=== PATIENT | female | born 1985 | race Caucasian/White ===

== ENCOUNTER 2018-01-01 22:38 | Emergency (ER) | payer OTHER, MEDICAID, SELFPAY ==
[2018-01-01 22:45] VITALS: BP 114/79; PULSE 93; RESP 14; TEMP 36.5; O2SAT 100; BMI 16.6
--- NOTE | 2018-01-01 22:47 | ED_ITS ---
HPI - Dental/Oral General Chief complaint: Dental/Oral Stated complaint: SORE MOUTH Time Seen by Provider: 01/01/18 22:47 Source: patient Mode of arrival: ambulatory Limitations: no limitations History of Present Illness HPI Narrative: The patient tells me she has experienced dental pain for years. She has significant decay. She has increased right maxillary pain today. There is no associated fever, facial swelling, difficulty swallowing, or chest pain. She has had no recent dental injury. She is currently in a Suboxone clinic for opioid abuse. She is going to inpatient rehab next week. Related Data Home Medications Medication Instructions Recorded Confirmed acyclovir [Zovirax] 800 mg PO BID #0 11/10/12 ibuprofen 200 mg PO Q4HP PRN #0 tab 11/10/12 Previous Rx's Medication Instructions Recorded amoxicillin 500 mg PO TID #27 cap 01/01/18 fluconazole [Diflucan] 150 mg PO QWEEK 14 Days #2 tab 01/01/18 ibuprofen 600 mg PO Q6-8H PRN #30 tab 01/01/18 Allergies Allergy/AdvReac Type Severity Reaction Status Date / Time No Known Drug Allergies Allergy Verified 01/01/18 22:45 Review of Systems Review of Systems All systems reviewed & are unremarkable except as noted in HPI and below Constitutional Denies chills, Denies fever(s), Denies headache(s), Denies lethargy and Denies weakness ENT Ears, Nose, Mouth, and Throat: Denies change in voice, Reports dental pain, Denies dizziness, Denies headache(s), Denies neck pain, Denies sinus pain and Denies sore throat Cardiovascular Denies chest pain and Denies palpitations Musculoskeletal Denies neck pain Integumentary/Breasts Denies pruritus and Denies rash Neurologic Denies dizziness, Denies headache(s) and Denies weakness Endocrine Denies palpitations PFSH Medical History No significant past surgical history (Acute) Opioid abuse (Acute) Social History Smoking Status: Current every day smoker additional social history: She is on Suboxone due to a history of opioid abuse. Exam Initial Vital Signs Initial Vital Signs: Vital Signs Temperature 97.7 F 01/01/18 22:45 Pulse Rate 93 H 01/01/18 22:45 Respiratory Rate 14 01/01/18 22:45 Blood Pressure 114/79 01/01/18 22:45 Pulse Oximetry 100 01/01/18 22:45 Const General: cooperative and well developed Nutritional Appearance: well nourished Orientation: alert, awake, oriented x3 and not confused [facility] [place] Head: normocephalic, atraumatic and other (No facial swelling.) Face and sinus: sinuses nontender, face symmetric and No dry mucous membranes Mouth: oral mucosae normal and moist mucous membranes Teeth and gingiva: other (Extensive dental decay. Tooth #4 has decayed to the gumline, other than little spike. There is tenderness with erythema and fluctuance at the base of this tooth. She has a small abscess.) Throat: posterior oropharynx normal, tonsils normal and uvula midline Neck Neck: full ROM and No lymphadenopathy Cardio Rate: regular rate Rhythm: regular rhythm Heart Sounds: S1 normal, S2 normal and no murmurs Course Orders Ordered: Discontinued Medications Amoxicillin ( Trimox 250mg Prepack) 1 bottle MISC SEEINSTR ONE Stop: 01/01/18 23:14 Last Admin: 01/01/18 23:19 Dose: 1 bottle Ketorolac Tromethamine (Toradol) 60 mg IM NOW ONE Stop: 01/01/18 23:14 Last Admin: 01/01/18 23:19 Dose: 60 mg Vital Signs - 8 hr 01/01/18 22:45 Temperature 97.7 F Pulse Rate 93 H Respiratory Rate 14 Blood Pressure 114/79 Pulse Oximetry 100 [facility] - Dental/Oral Medical Records Attestation: I reviewed the patient's medical records. [facility] Narrative Medical decision making narrative: She has been started on IM oxacillin for a small dental abscess. She is advised to use ibuprofen for pain. She is advised to seek dental follow-up. Discharge Plan Departure Patient Disposition: Home Clinical Impression: Dental abscess Instructions: Tooth Abscess Activity Restrictions/Additional Instructions: Amoxicillin 500 mg 3 times daily. Motrin 600 mg every 6 hr as needed for pain. Be sure you are drinking plenty of water. Diflucan as needed for vaginitis associated with the antibiotics. Return here if worse, I recommend arranging dental follow-up as soon as possible. Prescriptions: New amoxicillin 500 mg capsule 500 mg PO TID Qty: 27 RF: 0 ibuprofen 600 mg tablet 600 mg PO Q6-8H PRN (Reason: pain) Qty: 30 RF: 0 fluconazole [Diflucan] 150 mg tablet 150 mg PO QWEEK 14 Days Qty: 2 RF: 0 No Action acyclovir [Zovirax] 800 MG tablet 800 mg PO BID Qty: 0 RF: 0 ibuprofen 200 MG tablet 200 mg PO Q4HP PRNQty: 0 RF: 0
--- NOTE | 2018-01-01 23:09 | PC.NURSE ---
Dr. Rios at bedside to assess pt.
[2018-01-01] MEDS: KETOROLAC 60 MG/2 ML VIAL IM (23:19)
[2018-01-01] MEDS: AMOXICILLIN 250 MG PREPACK 1 BOTTLE MISC (23:19)
[2018-01-01 23:42] VITALS: BP 114/83; PULSE 80; RESP 16; TEMP 36.5; O2SAT 99
== END 2018-01-01 23:46 | disposition home or self-care (01) ==
LOC: ED 23:31
PROVIDERS: Emergency Provider Emergency Medicine
DX: K04.7 Periapical abscess without sinus (principal)
CPT/HCPCS: 96372; 99282; 99283; J1885

== ENCOUNTER 2018-01-29 18:56 | Inpatient (IN) | payer OTHER, MEDICAID, SELFPAY ==
[2018-01-29] VITALS (7 sets, daily range): BP systolic 96–123; BP diastolic 49–84; PULSE 107–131; RESP 16–18; TEMP 37.4–38.6; O2SAT 98–100; BMI 16.6; BMI 17.2
[2018-01-29 19:28] LABS: Bacteria Urine Many (>30); RBC Urine 5-10/HPF (0-5/HPF); Squamous Epithelial Cell Urine 0-1 /HPF; WBC Urine 30-100/HPF (0-5/HPF)
[2018-01-29 19:29] LABS: Culture Indicated Urine Specimen Cultured
[2018-01-29] MEDS: SODIUM CHLORIDE 0.9% 1,360.77 ML 400 ML IV (19:55)
[2018-01-29] MEDS: CEFTRIAXONE 1 GM/50 ML FROZ.PIGGY IV (19:55)
[2018-01-29 20:06] LABS: Add Manual Diff / Slide Review NO; Basophils Percent Auto 0.2 % (0-2); Eosinophils Percent Auto 0.2 % (2-4); Hematocrit 37.7 % (36-46); Hemoglobin 13.1 g/dL (12.0-16.0); Lymphocytes Percent Auto 5.4 % (25-40); Mean Corpuscular HGB Conc 34.7 % (30-36); Mean Corpuscular Hemoglobin 30.6 PG (26-34); Mean Corpuscular Volume 88.1 fL (80-100); Neutrophils Absolute Auto 5900 /uL (3000-5900); Neutrophils Percent Auto 87.2 % (50-75); Platelet Count 79 X10^3/uL (150-400); Red Blood Cell Count 4.27 X10^6/uL (4.0-5.2); Red Cell Distribution Width 13.2 % (11.6-14.8); White Blood Cell Count 6.8 X10^3/uL (4.5-11.0)
[2018-01-29 20:09] LABS: Alanine Aminotransferase 175 IU/L (9-52); Albumin 4.1 g/dL (3.5-5.0); Albumin Globulin Ratio 1.3 (1.0-2.8); Alkaline Phosphatase 106 U/L (38-126); Aspartate Aminotransferase 90 IU/L (14-36); Bilirubin Total 1.1 mg/dL (0.2-1.3); Blood Urea Nitrogen 12 mg/dL (7-17); Calcium 8.9 mg/dL (8.4-10.2); Carbon Dioxide 26 mmol/L (22-32); Chloride 94 mmol/L (98-107); Estimated Glomerular Filt Rate > 60.0 mL/min (>60); Globulin 3.2 g/dL (1.7-4.1); Glucose 162 mg/dL (70-100); HEMOLYSIS < 15 (0-50); Potassium 3.5 mmol/L (3.4-5.1); Sodium 134 mmol/L (137-145); Total Protein 7.3 g/dL (6.3-8.2)
[2018-01-29 20:10] LABS: Lactate (Lactic Acid) 2.5 mmol/L (0.7-2.1)
[2018-01-29] MEDS: ACETAMINOPHEN 325 MG TABLET 650 MG PO (20:20)
[2018-01-29 20:31] LABS: Procalcitonin 2.79 ng/mL (<0.5)
[2018-01-29] MEDS: SODIUM CHLORIDE 0.9% 1,000 ML 1000 ML IV (20:49)
--- NOTE | 2018-01-29 21:12 | ED.FEMALEGU ---
HPI - Female Genitourinary General Chief complaint: Urogenital-Female Stated complaint: SHAKING, BACK PAIN Time Seen by Provider: 01/29/18 19:10 Source: patient and family Mode of arrival: ambulatory Limitations: no limitations History of Present Illness HPI Narrative: 32-year-old female with history of smoking methamphetamines presents with her mother and a chief complaint of a day or 2 of dysuria, frequency and urgency as well as left lower back pain, fever and shaking chills. She has had nausea but denies any vomiting. She denies any chest pain or shortness of breath. She denies runny nose, sore throat. She has had no abdominal pain or diarrhea. She states her back pain is worse with motion and improves with rest. She denies any numbness, tingling or weakness. She denies any loss of control of bowel or bladder. MD Complaint: dysuria and UTI Onset (ago): day(s) Female Urogenital Radiation: L Flank Severity: moderate Quality: Aching, Burning and Cramping Duration: constant Exacerbating factors: movement Urinary symptoms: Difficulty Urinating, Dysuria, Flank Pain, Foul Smelling Urine, Frequency and Urgency Patient : No Related Data Home Medications Medication Instructions Recorded Confirmed acyclovir [Zovirax] 800 mg PO BID PRN #0 11/10/12 01/29/18 ibuprofen 200 mg PO Q4HP PRN #0 tab 11/10/12 01/29/18 valacyclovir 500 mg PO BID 01/29/18 01/29/18 Previous Rx's Medication Instructions Recorded ibuprofen 600 mg PO Q6-8H PRN #30 tab 01/01/18 Allergies Allergy/AdvReac Type Severity Reaction Status Date / Time No Known Drug Allergies Allergy Verified 01/29/18 19:17 Review of Systems Review of Systems All systems reviewed & are unremarkable except as noted in HPI and below Constitutional Reports chills, Reports fever(s), Denies lethargy and Denies weakness Eyes Denies change in vision, Denies eye discharge, Denies irritation and Denies loss of vision ENT Ears, Nose, Mouth, and Throat: Denies change in voice, Denies neck pain and Denies sore throat Cardiovascular Denies chest pain, Denies irregular heart rhythm, Denies lightheadedness, Denies palpitations, Denies dyspnea, Denies dyspnea on exertion and Denies orthopnea Respiratory Denies cough, Denies dyspnea, Denies dyspnea on exertion and Denies wheezing Gastrointestinal Gastrointestinal: Denies abdominal pain, Denies change in bowel habits, Denies diarrhea, Denies nausea and Denies vomiting Genitourinary Denies hematuria, Reports urinary frequency, Reports dysuria, Reports flank pain, Denies urinary incontinence and Denies urinary urgency Musculoskeletal Reports back pain and Denies neck pain Integumentary/Breasts Denies pruritus, Denies erythema, Denies rash and Denies wounds Neurologic Denies confusion, Denies loss of vision and Denies weakness Psychiatric Denies anxiety, Denies confusion, Denies depression, Denies homicidal ideation and Denies suicidal ideation Endocrine Denies palpitations Hematologic/Lymphatic Denies easy bruising Allergic/Immunologic Denies wheezing PFSH Medical History Asthma (Acute) Dental abscess (Acute) 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 Exam Narrative Exam Narrative: 32-year-old female obviously in distress, tearful clutching her left flank, mild rigors Initial Vital Signs Initial Vital Signs: Vital Signs Temperature 99.4 F 01/29/18 19:17 Pulse Rate 131 H 01/29/18 19:17 Respiratory Rate 16 01/29/18 19:17 Blood Pressure 123/84 01/29/18 19:17 Pulse Oximetry 100 01/29/18 19:17 Const General: cooperative, well developed, No well groomed, acute distress, disheveled, frail appearing and ill appearing Nutritional Appearance: malnourished Orientation: alert, awake, oriented x3 and not confused [facility] Head: normocephalic and atraumatic Ears: external ears normal and TM's normal bilaterally Nose: external nose normal Face and sinus: no sinus tenderness and No dry mucous membranes Mouth: oral mucosae normal and moist mucous membranes Teeth and gingiva: poor dentition Throat: tonsils normal and uvula midline Eyes General: appearance normal, both eyes and all related structures Eyelids: eyelids normal Conjunctivae: conjunctivae normal Sclera: sclerae normal Pupils: PERRL EOM: EOM intact bilaterally Neck Neck: normal visual inspection, trachea midline, No lymphadenopathy, No midline deformity and No JVD Lymphatic: No lymphedema Chest Chest: normal inspection of the chest Resp Effort & Inspection: normal respiratory effort, able to speak in complete sentences, no respiratory distress and no use of accessory muscles Auscultation: clear to auscultation bilaterally, no rales, no rhonchi and no wheezes Cardio Rate: tachycardic Rhythm: regular rhythm GI Inspection: non-distended Palpation: soft, no hepatosplenomegaly, No guarding, No pulsatile mass and No tender Auscultation: normal bowel sounds Back/Spine/Pelvis Back: CVA tenderness Cervical Spine: cervical ROM normal and No pain with cervical ROM Thoracic/Lumbar Spine: thoracic and lumbar spine normal to inspection Skin General: no rashes or lesions noted, No jaundice and No petechiae Neuro Cognition: normal cognition Speech: speech normal Gait: normal gait Motor: muscle tone normal throughout Sensory Exam: no sensory deficits noted DTR's: Rt Patellar: 2+ and Lt Patellar: 2+ Other: no saddle anesthesia Extrem General: full ROM, no clubbing, cyanosis or edema, no pedal edema and no calf tenderness Course Orders Ordered: ED Orders 01/29/18 19:01 Urine Culture Stat Urine Microscopic Stat 01/29/18 19:35 Blood Culture Stat Complete Blood Count AUTO DIFF Stat Comprehensive Metabolic Panel Stat Lactate (Lactic Acid) Stat Procalcitonin Stat 01/29/18 21:40 Education, smoking cessation ONGOING 01/29/18 22:01 Consult to Dietitian, Adult Routine 01/29/18 23:17 Consult to Respiratory Therapy Evaluate & Treat Consult to Shrink Pit Supervisor Routine 01/29/18 23:56 Lactate 4HR (Lactic Acid Rflx) Stat 01/30/18 05:00 Basic Metabolic Panel Routine Complete Blood Count AUTO DIFF Routine Acetaminophen (Tylenol) 650 mg PO Q6HR PRN PRN Reason: As Needed for Fever/Mild Pain Hydrocodone Bitart/Acetaminophen ([place] 5/325) 1 tab PO Q4HR PRN PRN Reason: Pain, Moderate (4-6) Docusate Sodium (Colace) 100 mg PO BID [facility] Ceftriaxone Sodium/Dextrose (Rocephin) 1 gm in 50 mls @ 100 mls/hr IV Q24H [facility] Last Admin: 01/29/18 22:58 Dose: Dextrose/Sodium Chloride (Dextrose 5%-0.45% Ns) 1,000 mls @ 100 mls/hr IV CONT [facility] Last Admin: 01/29/18 23:02 Dose: 100 mls/hr Magnesium Hydroxide (Milk Of Magnesia) 30 ml PO DAILY PRN PRN Reason: Constipation Morphine Sulfate (Morphine) 2 mg IV Q4HR PRN PRN Reason: Pain, Moderate (4-6) Last Admin: 01/30/18 00:04 Dose: 2 mg Ondansetron HCl (Zofran Odt) 4 mg PO Q8HR PRN PRN Reason: Nausea And Vomiting Ondansetron HCl (Zofran) 4 mg IV Q8HR PRN PRN Reason: Nausea And Vomiting Promethazine HCl (Phenadoz) 12.5 mg VT Q6HR PRN PRN Reason: Nausea And Vomiting Sennosides (Senna) 17.2 mg PO BEDTIME [facility] Discontinued Medications Acetaminophen (Tylenol) 650 mg PO NOW ONE Stop: 01/29/18 20:00 Last Admin: 01/29/18 20:20 Dose: 650 mg Acyclovir (Zovirax) 800 mg PO BID [facility] Fluconazole (Diflucan) 150 mg PO NOW ONE Stop: 01/29/18 22:02 Last Admin: 01/30/18 00:05 Dose: 150 mg Ceftriaxone Sodium/Dextrose (Rocephin) 1 gm in 50 mls @ 100 mls/hr IV NOW ONE Stop: 01/29/18 19:50 Last Infusion: 01/29/18 20:38 Dose: 0 mls/hr Admin: 01/29/18 19:55 Dose: 100 mls/hr Sodium Chloride (Normal Saline 0.9%) 1,360.77 mls @ 453.59 mls/hr 30 ml/kg infuse over 3 hr (1360.77 ml) IV CONT [facility] Last Infusion: 01/29/18 23:58 Dose: 0 mls/hr Infusion: 01/29/18 22:19 Dose: 453.59 mls/hr Infusion: 01/29/18 21:14 Dose: 453.59 mls/hr Infusion: 01/29/18 20:44 Dose: 0 mls/hr Admin: 01/29/18 19:55 Dose: 400 mls/hr Sodium Chloride (Normal Saline 0.9%) 1,000 mls @ 1,000 mls/hr IV BOLUS ONE Stop: 01/29/18 20:58 Last Infusion: 01/29/18 21:10 Dose: 0 mls/hr Admin: 01/29/18 20:49 Dose: 1,000 mls/hr Ibuprofen (Advil) 800 mg PO NOW ONE Stop: 01/29/18 22:15 Last Admin: 01/29/18 22:15 Dose: 800 mg Reevaluation(s) Reevaluation #1: patient continues to be tachycardic after 1st liter Consultations Consultation #1: Dr. Gibson happy to admit patient, will evaluate in ED Vital Signs - 8 hr 01/29/18 19:17 01/29/18 20:00 01/29/18 21:10 Temperature 99.4 F Pulse Rate 131 H 122 H 117 H Respiratory Rate 16 18 18 Blood Pressure 123/84 Blood Pressure [Left Arm] 117/82 102/69 Pulse Oximetry 100 100 100 01/29/18 22:08 01/29/18 22:15 01/29/18 22:41 Temperature 101.4 F H 101.4 F H 100.6 F H Pulse Rate 112 H 107 H Respiratory Rate 18 Blood Pressure 96/49 L Blood Pressure [Left Arm] Pulse Oximetry 100 98 01/29/18 22:49 01/30/18 00:00 01/30/18 00:30 Temperature 98.6 F Pulse Rate Respiratory Rate Blood Pressure Blood Pressure [Left Arm] Pulse Oximetry 98 94 MDM - Female Genitourinary Differential Diagnosis Likely urinary tract infection Medical Records Attestation: I reviewed the patient's medical records. Lab Data Attestation: I reviewed the patient's lab results. Result diagrams: 01/29/18 19:35 01/29/18 19:35 Lab Results 01/29/18 01/29/18 01/29/18 Range/Units 19:01 19:35 19:35 WBC 6.8 (4.5-11.0) X10^3/uL RBC 4.27 (4.0-5.2) X10^6/uL Hgb 13.1 (12.0-16.0) g/dL Hct 37.7 (36-46) % MCV 88.1 (80-100) fL MCH 30.6 (26-34) PG MCHC 34.7 (30-36) % RDW 13.2 (11.6-14.8) % Plt Count 79 L (150-400) X10^3/uL Neut % (Auto) 87.2 H (50-75) % Lymph % (Auto) 5.4 L (25-40) % [place] % (Auto) 7.0 (3-14) % Eos % (Auto) 0.2 L (2-4) % Baso % (Auto) 0.2 (0-2) % Neut # (Auto) 5900 (3385-2174) /uL Sodium (137-145) mmol/L Potassium (3.4-5.1) mmol/L Chloride (98-107) mmol/L Carbon Dioxide (22-32) mmol/L BUN (7-17) mg/dL Creatinine (0.52-1.04) mg/dL Estimated GFR (>60) mL/min BUN/Creatinine Ratio (6-22) Glucose (70-100) mg/dL Lactate (0.7-2.1) mmol/L Calcium (8.4-10.2) mg/dL Total Bilirubin (0.2-1.3) mg/dL AST (14-36) IU/L ALT (9-52) IU/L Alkaline Phosphatase (38-126) U/L Total Protein (6.3-8.2) g/dL Albumin (3.5-5.0) g/dL Globulin (1.7-4.1) g/dL Albumin/Globulin Ratio (1.0-2.8) Procalcitonin 2.79 H (<0.5) ng/mL Urine RBC 5-10/hpf H (0-5/HPF) Urine WBC 30-100/hpf H (0-5/HPF) Ur Squamous Epith Cells 0-1 /hpf Urine Bacteria Many (>30) H (None) Ur Culture Indicated? Specimen cultured Micro UA Comment Not Reportable 01/29/18 01/29/18 01/30/18 Range/Units 19:35 19:35 00:09 WBC (4.5-11.0) X10^3/uL RBC (4.0-5.2) X10^6/uL Hgb (12.0-16.0) g/dL Hct (36-46) % MCV (80-100) fL MCH (26-34) PG MCHC (30-36) % RDW (11.6-14.8) % Plt Count (150-400) X10^3/uL Neut % (Auto) (50-75) % Lymph % (Auto) (25-40) % [place] % (Auto) (3-14) % Eos % (Auto) (2-4) % Baso % (Auto) (0-2) % Neut # (Auto) (6462-5545) /uL Sodium 134 L (137-145) mmol/L Potassium 3.5 (3.4-5.1) mmol/L Chloride 94 L (98-107) mmol/L Carbon Dioxide 26 (22-32) mmol/L BUN 12 (7-17) mg/dL Creatinine 1.00 (0.52-1.04) mg/dL Estimated GFR > 60.0 (>60) mL/min BUN/Creatinine Ratio 12.0 (6-22) Glucose 162 H (70-100) mg/dL Lactate 2.5 H 2.3 H (0.7-2.1) mmol/L Calcium 8.9 (8.4-10.2) mg/dL Total Bilirubin 1.1 (0.2-1.3) mg/dL AST 90 H (14-36) IU/L ALT 175 H (9-52) IU/L Alkaline Phosphatase 106 (38-126) U/L Total Protein 7.3 (6.3-8.2) g/dL Albumin 4.1 (3.5-5.0) g/dL Globulin 3.2 (1.7-4.1) g/dL Albumin/Globulin Ratio 1.3 (1.0-2.8) Procalcitonin (<0.5) ng/mL Urine RBC (0-5/HPF) Urine WBC (0-5/HPF) Ur Squamous Epith Cells Urine Bacteria (None) Ur Culture Indicated? Micro UA Comment Point of Care Testing Test Results Negative Urine Dip Bedside Urine Glucose Negative Bedside Urine Bilirubin - Negative Bedside Urine Ketone - Negative Urine Specific Lyles 1.030 Bedside Urine Occult Blood +++ Bedside Urine pH 6.0 Bedside Urine Protein ++ 100 Bedside Urine Urobilinogen 2+ 4mg Bedside Urine Nitrite + Positive Bedside Urine Leukocytes ++ 125 Esterase MDM Narrative Medical decision making narrative: 32-year-old female with history of opioid and methamphetamine abuse presents with few days of dysuria, frequency and urgency as well as fever, shaking chills and left lower back pain. Sepsis orders placed on arrival including blood cultures, lactate antibiotics and fluids. Patient's lactate is elevated and she develops fever during her visit. Patient meets criteria for sepsis and will be admitted for fluids, IV antibiotics/hydration and stabilization of her condition Discharge Plan Departure Patient Disposition: Admitted As Inpatient Clinical Impression: Sepsis, Pyelonephritis Discharge Date/Time: 01/29/18 22:19 Interventions: ED Discharge Assessment Last Done: 01/29/18 22:19 Admit Date/Time: 01/29/18 21:07 Admit Provider: Bette Gibson
--- NOTE | 2018-01-29 21:17 | ED_ITS ---
HPI - Female Genitourinary General Chief complaint: Urogenital-Female Stated complaint: SHAKING, BACK PAIN Time Seen by Provider: 01/29/18 19:10 Source: patient and family Mode of arrival: ambulatory Limitations: no limitations History of Present Illness HPI Narrative: 32-year-old female with history of smoking methamphetamines presents with her mother and a chief complaint of a day or 2 of dysuria, frequency and urgency as well as left lower back pain, fever and shaking chills. She has had nausea but denies any vomiting. She denies any chest pain or shortness of breath. She denies runny nose, sore throat. She has had no abdominal pain or diarrhea. She states her back pain is worse with motion and improves with rest. She denies any numbness, tingling or weakness. She denies any loss of control of bowel or bladder. MD Complaint: dysuria and UTI Onset (ago): day(s) Female Urogenital Radiation: L Flank Severity: moderate Quality: Aching, Burning and Cramping Duration: constant Exacerbating factors: movement Urinary symptoms: Difficulty Urinating, Dysuria, Flank Pain, Foul Smelling Urine , Frequency and Urgency Patient : No Related Data Home Medications Medication Instructions Recorded Confirmed acyclovir [Zovirax] 800 mg PO BID PRN #0 11/10/12 01/29/18 ibuprofen 200 mg PO Q4HP PRN #0 tab 11/10/12 01/29/18 valacyclovir 500 mg PO BID 01/29/18 01/29/18 Previous Rx's Medication Instructions Recorded ibuprofen 600 mg PO Q6-8H PRN #30 tab 01/01/18 Allergies Allergy/AdvReac Type Severity Reaction Status Date / Time No Known Drug Allergies Allergy Verified 01/29/18 19:17 Review of Systems Review of Systems All systems reviewed & are unremarkable except as noted in HPI and below Constitutional Reports chills, Reports fever(s), Denies lethargy and Denies weakness Eyes Denies change in vision, Denies eye discharge, Denies irritation and Denies loss of vision ENT Ears, Nose, Mouth, and Throat: Denies change in voice, Denies neck pain and Denies sore throat Cardiovascular Denies chest pain, Denies irregular heart rhythm, Denies lightheadedness, Denies palpitations, Denies dyspnea, Denies dyspnea on exertion and Denies orthopnea Respiratory Denies cough, Denies dyspnea, Denies dyspnea on exertion and Denies wheezing Gastrointestinal Gastrointestinal: Denies abdominal pain, Denies change in bowel habits, Denies diarrhea, Denies nausea and Denies vomiting Genitourinary Denies hematuria, Reports urinary frequency, Reports dysuria, Reports flank pain , Denies urinary incontinence and Denies urinary urgency Musculoskeletal Reports back pain and Denies neck pain Integumentary/Breasts Denies pruritus, Denies erythema, Denies rash and Denies wounds Neurologic Denies confusion, Denies loss of vision and Denies weakness Psychiatric Denies anxiety, Denies confusion, Denies depression, Denies homicidal ideation and Denies suicidal ideation Endocrine Denies palpitations Hematologic/Lymphatic Denies easy bruising Allergic/Immunologic Denies wheezing PFSH Medical History Asthma (Acute) Dental abscess (Acute) 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 Exam Narrative Exam Narrative: 32-year-old female obviously in distress, tearful clutching her left flank, mild rigors Initial Vital Signs Initial Vital Signs: Vital Signs Temperature 99.4 F 01/29/18 19:17 Pulse Rate 131 H 01/29/18 19:17 Respiratory Rate 16 01/29/18 19:17 Blood Pressure 123/84 01/29/18 19:17 Pulse Oximetry 100 01/29/18 19:17 Const General: cooperative, well developed, No well groomed, acute distress, disheveled, frail appearing and ill appearing Nutritional Appearance: malnourished Orientation: alert, awake, oriented x3 and not confused [facility] Head: normocephalic and atraumatic Ears: external ears normal and TM's normal bilaterally Nose: external nose normal Face and sinus: no sinus tenderness and No dry mucous membranes Mouth: oral mucosae normal and moist mucous membranes Teeth and gingiva: poor dentition Throat: tonsils normal and uvula midline Eyes General: appearance normal, both eyes and all related structures Eyelids: eyelids normal Conjunctivae: conjunctivae normal Sclera: sclerae normal Pupils: PERRL EOM: EOM intact bilaterally Neck Neck: normal visual inspection, trachea midline, No lymphadenopathy, No midline deformity and No JVD Lymphatic: No lymphedema Chest Chest: normal inspection of the chest Resp Effort & Inspection: normal respiratory effort, able to speak in complete sentences, no respiratory distress and no use of accessory muscles Auscultation: clear to auscultation bilaterally, no rales, no rhonchi and no wheezes Cardio Rate: tachycardic Rhythm: regular rhythm GI Inspection: non-distended Palpation: soft, no hepatosplenomegaly, No guarding, No pulsatile mass and No tender Auscultation: normal bowel sounds Back/Spine/Pelvis Back: CVA tenderness Cervical Spine: cervical ROM normal and No pain with cervical ROM Thoracic/Lumbar Spine: thoracic and lumbar spine normal to inspection Skin General: no rashes or lesions noted, No jaundice and No petechiae Neuro Cognition: normal cognition Speech: speech normal Gait: normal gait Motor: muscle tone normal throughout Sensory Exam: no sensory deficits noted DTR's: Rt Patellar: 2+ and Lt Patellar: 2+ Other: no saddle anesthesia Extrem General: full ROM, no clubbing, cyanosis or edema, no pedal edema and no calf tenderness Course Orders Ordered: ED Orders 01/29/18 19:01 Urine Culture Stat Urine Microscopic Stat 01/29/18 19:35 Blood Culture Stat Complete Blood Count AUTO DIFF Stat Comprehensive Metabolic Panel Stat Lactate (Lactic Acid) Stat Procalcitonin Stat 01/29/18 21:40 Education, smoking cessation ONGOING 01/29/18 22:01 Consult to Dietitian, Adult Routine 01/29/18 23:17 Consult to Respiratory Therapy Evaluate & Treat Consult to Field Care Advocate Routine 01/29/18 23:56 Lactate 4HR (Lactic Acid Rflx) Stat 01/30/18 05:00 Basic Metabolic Panel Routine Complete Blood Count AUTO DIFF Routine Acetaminophen (Tylenol) 650 mg PO Q6HR PRN PRN Reason: As Needed for Fever/Mild Pain Hydrocodone Bitart/Acetaminophen ([place] 5/325) 1 tab PO Q4HR PRN PRN Reason: Pain, Moderate (4-6) Docusate Sodium (Colace) 100 mg PO BID [facility] Ceftriaxone Sodium/Dextrose (Rocephin) 1 gm in 50 mls @ 100 mls/hr IV Q24H [facility] Last Admin: 01/29/18 22:58 Dose: Dextrose/Sodium Chloride (Dextrose 5%-0.45% Ns) 1,000 mls @ 100 mls/hr IV CONT [facility] Last Admin: 01/29/18 23:02 Dose: 100 mls/hr Magnesium Hydroxide (Milk Of Magnesia) 30 ml PO DAILY PRN PRN Reason: Constipation Morphine Sulfate (Morphine) 2 mg IV Q4HR PRN PRN Reason: Pain, Moderate (4-6) Last Admin: 01/30/18 00:04 Dose: 2 mg Ondansetron HCl (Zofran Odt) 4 mg PO Q8HR PRN PRN Reason: Nausea And Vomiting Ondansetron HCl (Zofran) 4 mg IV Q8HR PRN PRN Reason: Nausea And Vomiting Promethazine HCl (Phenadoz) 12.5 mg RI Q6HR PRN PRN Reason: Nausea And Vomiting Sennosides (Senna) 17.2 mg PO BEDTIME [facility] Discontinued Medications Acetaminophen (Tylenol) 650 mg PO NOW ONE Stop: 01/29/18 20:00 Last Admin: 01/29/18 20:20 Dose: 650 mg Acyclovir (Zovirax) 800 mg PO BID [facility] Fluconazole (Diflucan) 150 mg PO NOW ONE Stop: 01/29/18 22:02 Last Admin: 01/30/18 00:05 Dose: 150 mg Ceftriaxone Sodium/Dextrose (Rocephin) 1 gm in 50 mls @ 100 mls/hr IV NOW ONE Stop: 01/29/18 19:50 Last Infusion: 01/29/18 20:38 Dose: 0 mls/hr Admin: 01/29/18 19:55 Dose: 100 mls/hr Sodium Chloride (Normal Saline 0.9%) 1,360.77 mls @ 453.59 mls/hr 30 ml/kg infuse over 3 hr (1360.77 ml) IV CONT [facility] Last Infusion: 01/29/18 23:58 Dose: 0 mls/hr Infusion: 01/29/18 22:19 Dose: 453.59 mls/hr Infusion: 01/29/18 21:14 Dose: 453.59 mls/hr Infusion: 01/29/18 20:44 Dose: 0 mls/hr Admin: 01/29/18 19:55 Dose: 400 mls/hr Sodium Chloride (Normal Saline 0.9%) 1,000 mls @ 1,000 mls/hr IV BOLUS ONE Stop: 01/29/18 20:58 Last Infusion: 01/29/18 21:10 Dose: 0 mls/hr Admin: 01/29/18 20:49 Dose: 1,000 mls/hr Ibuprofen (Advil) 800 mg PO NOW ONE Stop: 01/29/18 22:15 Last Admin: 01/29/18 22:15 Dose: 800 mg Reevaluation(s) Reevaluation #1: patient continues to be tachycardic after 1st liter Consultations Consultation #1: Dr. Gibson happy to admit patient, will evaluate in ED Vital Signs - 8 hr 01/29/18 19:17 01/29/18 20:00 01/29/18 21:10 Temperature 99.4 F Pulse Rate 131 H 122 H 117 H Respiratory Rate 16 18 18 Blood Pressure 123/84 Blood Pressure [Left Arm] 117/82 102/69 Pulse Oximetry 100 100 100 01/29/18 22:08 01/29/18 22:15 01/29/18 22:41 Temperature 101.4 F H 101.4 F H 100.6 F H Pulse Rate 112 H 107 H Respiratory Rate 18 Blood Pressure 96/49 L Blood Pressure [Left Arm] Pulse Oximetry 100 98 01/29/18 22:49 01/30/18 00:00 01/30/18 00:30 Temperature 98.6 F Pulse Rate Respiratory Rate Blood Pressure Blood Pressure [Left Arm] Pulse Oximetry 98 94 MDM - Female Genitourinary Differential Diagnosis Likely urinary tract infection Medical Records Attestation: I reviewed the patient's medical records. Lab Data Attestation: I reviewed the patient's lab results. Result diagrams: 01/29/18 19:35 01/29/18 19:35 Lab Results 01/29/18 01/29/18 01/29/18 Range/Units 19:01 19:35 19:35 WBC 6.8 (4.5-11.0) X10^3/uL RBC 4.27 (4.0-5.2) X10^6/uL Hgb 13.1 (12.0-16.0) g/dL Hct 37.7 (36-46) % MCV 88.1 (80-100) fL MCH 30.6 (26-34) PG MCHC 34.7 (30-36) % RDW 13.2 (11.6-14.8) % Plt Count 79 L (150-400) X10^3/uL Neut % (Auto) 87.2 H (50-75) % Lymph % (Auto) 5.4 L (25-40) % [place] % (Auto) 7.0 (3-14) % Eos % (Auto) 0.2 L (2-4) % Baso % (Auto) 0.2 (0-2) % Neut # (Auto) 5900 (6049-0618) /uL Sodium (137-145) mmol/L Potassium (3.4-5.1) mmol/L Chloride (98-107) mmol/L Carbon Dioxide (22-32) mmol/L BUN (7-17) mg/dL Creatinine (0.52-1.04) mg/dL Estimated GFR (>60) mL/min BUN/Creatinine Ratio (6-22) Glucose (70-100) mg/dL Lactate (0.7-2.1) mmol/L Calcium (8.4-10.2) mg/dL Total Bilirubin (0.2-1.3) mg/dL AST (14-36) IU/L ALT (9-52) IU/L Alkaline Phosphatase (38-126) U/L Total Protein (6.3-8.2) g/dL Albumin (3.5-5.0) g/dL Globulin (1.7-4.1) g/dL Albumin/Globulin Ratio (1.0-2.8) Procalcitonin 2.79 H (<0.5) ng/mL Urine RBC 5-10/hpf H (0-5/HPF) Urine WBC 30-100/hpf H (0-5/HPF) Ur Squamous Epith Cells 0-1 /hpf Urine Bacteria Many (>30) H (None) Ur Culture Indicated? Specimen cultured Micro UA Comment Not Reportable 01/29/18 01/29/18 01/30/18 Range/Units 19:35 19:35 00:09 WBC (4.5-11.0) X10^3/uL RBC (4.0-5.2) X10^6/uL Hgb (12.0-16.0) g/dL Hct (36-46) % MCV (80-100) fL MCH (26-34) PG MCHC (30-36) % RDW (11.6-14.8) % Plt Count (150-400) X10^3/uL Neut % (Auto) (50-75) % Lymph % (Auto) (25-40) % [place] % (Auto) (3-14) % Eos % (Auto) (2-4) % Baso % (Auto) (0-2) % Neut # (Auto) (0650-7743) /uL Sodium 134 L (137-145) mmol/L Potassium 3.5 (3.4-5.1) mmol/L Chloride 94 L (98-107) mmol/L Carbon Dioxide 26 (22-32) mmol/L BUN 12 (7-17) mg/dL Creatinine 1.00 (0.52-1.04) mg/dL Estimated GFR > 60.0 (>60) mL/min BUN/Creatinine Ratio 12.0 (6-22) Glucose 162 H (70-100) mg/dL Lactate 2.5 H 2.3 H (0.7-2.1) mmol/L Calcium 8.9 (8.4-10.2) mg/dL Total Bilirubin 1.1 (0.2-1.3) mg/dL AST 90 H (14-36) IU/L ALT 175 H (9-52) IU/L Alkaline Phosphatase 106 (38-126) U/L Total Protein 7.3 (6.3-8.2) g/dL Albumin 4.1 (3.5-5.0) g/dL Globulin 3.2 (1.7-4.1) g/dL Albumin/Globulin Ratio 1.3 (1.0-2.8) Procalcitonin (<0.5) ng/mL Urine RBC (0-5/HPF) Urine WBC (0-5/HPF) Ur Squamous Epith Cells Urine Bacteria (None) Ur Culture Indicated? Micro UA Comment Point of Care Testing Test Results Negative Urine Dip Bedside Urine Glucose Negative Bedside Urine Bilirubin - Negative Bedside Urine Ketone - Negative Urine Specific [place] 1.030 Bedside Urine Occult Blood +++ Bedside Urine pH 6.0 Bedside Urine Protein ++ 100 Bedside Urine Urobilinogen 2+ 4mg Bedside Urine Nitrite + Positive Bedside Urine Leukocytes ++ 125 Esterase MDM Narrative Medical decision making narrative: 32-year-old female with history of opioid and methamphetamine abuse presents with few days of dysuria, frequency and urgency as well as fever, shaking chills and left lower back pain. Sepsis orders placed on arrival including blood cultures, lactate antibiotics and fluids. Patient's lactate is elevated and she develops fever during her visit. Patient meets criteria for sepsis and will be admitted for fluids, IV antibiotics/hydration and stabilization of her condition Discharge Plan Departure Patient Disposition: Admitted As Inpatient Clinical Impression: Sepsis, Pyelonephritis Discharge Date/Time: 01/29/18 22:19 Interventions: ED Discharge Assessment Last Done: 01/29/18 22:19 Admit Date/Time: 01/29/18 21:07 Admit Provider: Bette Gibson
--- NOTE | 2018-01-29 21:43 | PM.HP.1 ---
History of Present Illness Date Patient Seen: 01/29/18 Chief complaint: SHAKING, BACK PAIN Narrative: Patient is a 32 y/o female with a history of methamphetamine and opioid abuse who presents with five days of diarrhea,followed by dysuria, shaking chills, fever, and flank pain. The patient was well until five days ago. She reports she developed the squirts which quickly resolved. Yesterday she developed shaking chills and fever. Today she developed dysuria and flank pain. Her mother has a history of frequent UTI's. The patient has had UTI's in the past but never pyelo. She was evaluated in the hospital and found to be tachycardic with a heart rate of 130, left shift, and flank pain. The patient had a positive urine and is now admitted for further evaluation. Her lactate was elevated at 2.5, she was given IV fluids, started on antibiotics with plans for admission to the hospital. Patient believes she has lost about 15 pounds Patient History Medical History Dental abscess (Acute) Methamphetamine abuse (Acute) No significant past surgical history (Acute) Opioid abuse (Acute) Surgical History History of section (Acute) Family & Social History Family History: Reviewed 01/29/18 by Chencho Mar DO Tobacco & Substance use: Smoking Status Current every day smoker alcohol intake frequency 0-2 drinks per day Substance Use Type methamphetamine Meds Home Medications Medication Instructions Recorded Confirmed Type acyclovir [Zovirax] 800 mg PO BID #0 11/10/12 History ibuprofen 200 mg PO Q4HP PRN #0 tab 11/10/12 History ibuprofen 600 mg PO Q6-8H PRN #30 tab 01/01/18 Rx Allergies Allergy/AdvReac Type Severity Reaction Status Date / Time No Known Drug Allergies Allergy Verified 01/29/18 19:17 Review of Systems Review of Systems All systems reviewed & are unremarkable except as noted in HPI and below Exam Vital Signs (past 8 hours): - 01/29/18 19:17 01/29/18 20:00 01/29/18 21:10 Temperature 99.4 F Pulse Rate 131 H 122 H 117 H Respiratory Rate 16 18 18 Blood Pressure 123/84 Blood Pressure [Left Arm] 117/82 102/69 Pulse Oximetry 100 100 100 Oxygen Delivery Method Room Air Narrative Exam Narrative: Cachetic ill appearing female HEENT: NC/AT PERRLA, EOMI, Oropharynx: poor dentition, multiple missing teeth, moist mucus membranes, posterior pharynx red Neck: Supple, non tender posterior cervical adenopathy, Lungs: clear to auscultation CV: RRR nl Sl S2 tachycardic Abd: soft/ non tender/ non distended/ no HSM, bilateral CVAT Ext: no edema Neuro: non focal Psych: awake and alert, no tics, tremors, hallucinations, or delusions Chest with mild erythema Objective Labs Result Diagrams: 01/29/18 19:35 01/29/18 19:35 Labs: Laboratory Results - last 24 hr 01/29/18 01/29/18 01/29/18 19:01 19:35 19:35 WBC 6.8 RBC 4.27 Hgb 13.1 Hct 37.7 MCV 88.1 MCH 30.6 MCHC 34.7 RDW 13.2 Plt Count 79 L Neut % (Auto) 87.2 H Lymph % (Auto) 5.4 L [place] % (Auto) 7.0 Eos % (Auto) 0.2 L Baso % (Auto) 0.2 Neut # (Auto) 5900 Sodium Potassium Chloride Carbon Dioxide BUN Creatinine Estimated GFR BUN/Creatinine Ratio Glucose Lactate Calcium Total Bilirubin AST ALT Alkaline Phosphatase Total Protein Albumin Globulin Albumin/Globulin Ratio Procalcitonin 2.79 H Urine RBC 5-10/hpf H Urine WBC 30-100/hpf H Ur Squamous Epith Cells 0-1 /hpf Urine Bacteria Many (>30) H Ur Culture Indicated? Specimen cultured Micro UA Comment Not Reportable 01/29/18 01/29/18 19:35 19:35 WBC RBC Hgb Hct MCV MCH MCHC RDW Plt Count Neut % (Auto) Lymph % (Auto) [place] % (Auto) Eos % (Auto) Baso % (Auto) Neut # (Auto) Sodium 134 L Potassium 3.5 Chloride 94 L Carbon Dioxide 26 BUN 12 Creatinine 1.00 Estimated GFR > 60.0 BUN/Creatinine Ratio 12.0 Glucose 162 H Lactate 2.5 H Calcium 8.9 Total Bilirubin 1.1 AST 90 H ALT 175 H Alkaline Phosphatase 106 Total Protein 7.3 Albumin 4.1 Globulin 3.2 Albumin/Globulin Ratio 1.3 Procalcitonin Urine RBC Urine WBC Ur Squamous Epith Cells Urine Bacteria Ur Culture Indicated? Micro UA Comment Assessment & Plan (1) Poor dentition: Problem details: This is a chronic problem. Suggest outpatient Dental evaluation Current visit: Yes Status: Acute (2) Protein calorie malnutrition: Problem details: Also chronic, likely secondary to methamphetamine abuse. Suggest boost/supplements with meals. Nutrition consult Current visit: Yes Status: Acute (3) Thrombocytopenia: Problem details: ? related to sepsis vs. underlying liver disease vs. other, will follow Current visit: Yes Status: Acute (4) Hyponatremia: Problem details: IV hydration, will follow Current visit: Yes Status: Acute (5) Pyelonephritis: Problem details: Continue Ceftriaxone, await blood cultures and urine cultures Current visit: Yes Status: Acute (6) Sepsis: Problem details: Patient is receiving 30 mg/kg IV hydration now. Will continue IV fluids after Qualifiers: Sepsis type: sepsis due to unspecified organism Qualified Code(s): A41.9 - Sepsis, unspecified organism Current visit: Yes Status: Acute Plan: Assessment/Plan Narrative: Patient is a full code and will not that in her record accordingly
[2018-01-29] MEDS: IBUPROFEN 400 MG TABLET 800 MG PO (22:15)
[2018-01-29] MEDS: DEXTROSE 5%-0.45% NS 1,000 ML 100 ML IV (23:02)
--- NOTE | 2018-01-29 23:25 | PC.NURSE ---
Addendum entered by Bette Lopez R.N. 01/29/18 23:39: Pt reports its been two days since last meth use. Original Note: Pt admitted to acute care from ER. A/O. Pain in neck/left side of back 07/05, reports ibuprofen previously given has helped. IV infusing w/o complications. Oriented to room/call light. Meds sent home with visitor/significant other. Declines to lock anything in the safe, purse/clothes/shoes in room closet. Eating dinner provided by visitor. Missing teeth/trouble chewing. Reported to NOC shift nurse two missing flaherty on admission assessment due to visitor in room/would not allow purse contents to be viewed.
[2018-01-29 23:56] LABS: Reflexed Lactate in 2 Hours Y
[2018-01-30] VITALS (13 sets, daily range): BP systolic 75–115; BP diastolic 45–56; PULSE 80–109; RESP 16–18; TEMP 36.3–38.6; O2SAT 94–100; BMI 17.2
[2018-01-30] MEDS: MORPHINE 2 MG/ML INJ IV ×4 (00:04→22:01)
[2018-01-30] MEDS: FLUCONAZOLE 150 MG TABLET PO (00:05)
[2018-01-30 00:27] LABS: Lactate 2HR (Lactic Acid Rflx) 2.3 mmol/L (0.7-2.1)
--- NOTE | 2018-01-30 02:12 | PC.NURSE ---
Addendum entered by Marisela Ahuja R.N. 01/30/18 06:54: 0600 Pt BP 80s/40's when pt sitting at the bedside, BP 75/49, pt denies dizziness, assisted to BSC to void. Notified MD, new order for 1L IV bolus. Pt reports that she is comfortable, ate a snack, denies nausea. Original Note: rn palliative: 0000 Pt's visitor left, able to finish admission questions regarding if pt has thoughts of suicide and cooperative with care and shares about her current living situation, pt reports that she feels physically safe in her current living situation. Pt very open and shares that she smokes methamphetamine and that there are others living in her moms house and that makes living there very challenging for her but she does feel safe. Pt denies any suicidal thoughts. Pt continues to have left flank/back pain, medicated with PRN Morphine, pt reports that she is allergic to Vicodin, will update chart.
[2018-01-30 05:57] LABS: Add Manual Diff / Slide Review NO; Basophils Percent Auto 0.4 % (0-2); Eosinophils Percent Auto 1.3 % (2-4); Hematocrit 30.5 % (36-46); Hemoglobin 10.6 g/dL (12.0-16.0); Lymphocytes Percent Auto 15.1 % (25-40); Mean Corpuscular HGB Conc 34.9 % (30-36); Mean Corpuscular Hemoglobin 30.8 PG (26-34); Mean Corpuscular Volume 88.4 fL (80-100); Monocytes Percent Auto 11.2 % (3-14); Neutrophils Absolute Auto 2300 /uL (3000-5900); Platelet Count 63 X10^3/uL (150-400); Red Blood Cell Count 3.45 X10^6/uL (4.0-5.2); Red Cell Distribution Width 13.1 % (11.6-14.8)
[2018-01-30] MEDS: SODIUM CHLORIDE 0.9% 1,000 ML 1000 ML IV (06:10)
[2018-01-30 06:14] LABS: BUN Creatinine Ratio 15.6 (6-22); Blood Urea Nitrogen 14 mg/dL (7-17); Calcium 7.6 mg/dL (8.4-10.2); Carbon Dioxide 28 mmol/L (22-32); Chloride 102 mmol/L (98-107); Estimated Glomerular Filt Rate > 60.0 mL/min (>60); Glucose 141 mg/dL (70-100); HEMOLYSIS < 15 (0-50); Potassium 3.6 mmol/L (3.4-5.1); Sodium 138 mmol/L (137-145)
[2018-01-30 06:19] LABS: White Blood Cell Count 3.2 X10^3/uL (4.5-11.0)
[2018-01-30] MEDS: DEXTROSE 5%-0.45% NS 1,000 ML 100 ML IV ×2 (07:06→16:35)
[2018-01-30] MEDS: DOCUSATE 100 MG CAPSULE PO ×2 (10:31→21:11)
--- NOTE | 2018-01-30 11:12 | PM.PN.1 ---
Subjective Date Patient Seen: 01/30/18 Time Patient Seen: 08:40 Interval history: NO FEVER OR CHILLS OVERNIGHT NO CP OR SOB/MEYER NO SIGNIFICANT ISSUES OVERNIGHT Exam Vital Signs (past 8 hours): - 01/30/18 05:40 01/30/18 06:18 01/30/18 06:27 Temperature 97.3 F L Pulse Rate 80 85 Respiratory Rate 16 Blood Pressure 75/49 L 85/45 L 82/47 L Pulse Oximetry 100 100 01/30/18 06:53 01/30/18 07:15 Temperature 97.4 F L Pulse Rate 87 Respiratory Rate 16 Blood Pressure 87/46 L 83/49 L Pulse Oximetry 100 Oxygen Delivery Method Room Air Narrative Exam Narrative: NO ACUTE DISTRESS. PATIENT IS ALERT ORIENTED X3. VITAL SIGNS STABLE HEAD ATRAUMATIC NORMOCEPHALIC NECK : SUPPLE WITHOUT ADENOPATHY EYE: EOMI, PERRLA, NORMAL CONJUNCTIVA CHEST: REGULAR RATE.. NO RUBS. PMI IS NON DISPLACED. NO MURMURS PULMONARY: DECREASED BS OVER THE BASES. MILD BIBASILAR CRACKLES NOTED; NO INCREASED DULLNESS TO PERCUSSION ABDOMEN: SOFT; NON TENDER; BS + IN ALL 4 QUAD EXTREMITIES:NO EDEMA.. NO CYANOSIS OR CLUBBING NOTED. NEURO: CRANIAL NERVES 2-12 GROSSLY INTACT. NO FOCAL NEUROLOGICAL DEFICIT NOTED. MSK: NORMAL RANGE OF MOTION FOR AGE. NO JOINT EFFUSION. SKIN: NORMAL FOR ETHNICITY; NO ECCHYMOSIS. NO LESION. GOOD TURGOR.; [place] : NORMAL EXTERNAL GENITALIA. PSYCH : APPROPRIATE MOOD AND AFFECT. ALERT AWAKE ORIENTED X3 Objective Labs Result Diagrams: 01/30/18 05:27 01/30/18 05:27 Labs: Laboratory Results - last 24 hr 01/29/18 01/29/18 01/29/18 19:01 19:35 19:35 WBC 6.8 RBC 4.27 Hgb 13.1 Hct 37.7 MCV 88.1 MCH 30.6 MCHC 34.7 RDW 13.2 Plt Count 79 L Neut % (Auto) 87.2 H Lymph % (Auto) 5.4 L [place] % (Auto) 7.0 Eos % (Auto) 0.2 L Baso % (Auto) 0.2 Neut # (Auto) 5900 Sodium Potassium Chloride Carbon Dioxide BUN Creatinine Estimated GFR BUN/Creatinine Ratio Glucose Lactate Calcium Total Bilirubin AST ALT Alkaline Phosphatase Total Protein Albumin Globulin Albumin/Globulin Ratio Procalcitonin 2.79 H Urine RBC 5-10/hpf H Urine WBC 30-100/hpf H Ur Squamous Epith Cells 0-1 /hpf Urine Bacteria Many (>30) H Ur Culture Indicated? Specimen cultured Micro UA Comment Not Reportable 01/29/18 01/29/18 01/30/18 19:35 19:35 00:09 WBC RBC Hgb Hct MCV MCH MCHC RDW Plt Count Neut % (Auto) Lymph % (Auto) [place] % (Auto) Eos % (Auto) Baso % (Auto) Neut # (Auto) Sodium 134 L Potassium 3.5 Chloride 94 L Carbon Dioxide 26 BUN 12 Creatinine 1.00 Estimated GFR > 60.0 BUN/Creatinine Ratio 12.0 Glucose 162 H Lactate 2.5 H 2.3 H Calcium 8.9 Total Bilirubin 1.1 AST 90 H ALT 175 H Alkaline Phosphatase 106 Total Protein 7.3 Albumin 4.1 Globulin 3.2 Albumin/Globulin Ratio 1.3 Procalcitonin Urine RBC Urine WBC Ur Squamous Epith Cells Urine Bacteria Ur Culture Indicated? Micro UA Comment 01/30/18 01/30/18 05:27 05:27 WBC 3.2 L D RBC 3.45 L Hgb 10.6 L Hct 30.5 L MCV 88.4 MCH 30.8 MCHC 34.9 RDW 13.1 Plt Count 63 L Neut % (Auto) 72.0 Lymph % (Auto) 15.1 L [place] % (Auto) 11.2 Eos % (Auto) 1.3 L Baso % (Auto) 0.4 Neut # (Auto) 2300 L Sodium 138 Potassium 3.6 Chloride 102 Carbon Dioxide 28 BUN 14 Creatinine 0.90 Estimated GFR > 60.0 BUN/Creatinine Ratio 15.6 Glucose 141 H Lactate Calcium 7.6 L Total Bilirubin AST ALT Alkaline Phosphatase Total Protein Albumin Globulin Albumin/Globulin Ratio Procalcitonin Urine RBC Urine WBC Ur Squamous Epith Cells Urine Bacteria Ur Culture Indicated? Micro UA Comment Assessment & Plan Plan: Assessment/Plan Narrative: IMPRESSION AND PLAN SEPSIS ; LARON TO UTI; RESOVING; CONT WITH ABX AND IVF FOR NOW; WATCH VITALS AND VITAL ORGANS CLOSELY WITH SERIAL LABS; TREAT INDIATED ; PROGNOSIS IS GUARDED ECOLI UTI; CONT CURRENT ABX; FOLLOW CX AND SENSITIVITY REPORT; ADJUST ABX INDICATED [place]I BACTEREMIA; BLOOD CX RESULT; CONT CURRENT ABX FOR NOW POOR HYGIENE; COUNSELING GIVEN POOR DENTITION; OUTPATIENT MANAGEMENT ANEMIA; CHRONIC DISEASE VS OTHER; MONITOR H FOR NOW PANCYTOPENIA; MONITOR FOR NOW; COULD BE RELATED TO SEPSIS; RTEAT INDICATED HYPERGLYCEMIA; POSS PREDM VS DM; OUTPATIENT WORKUP INDICATED; MONITOR FOR NOW TRANSAMINITIS ; GET HEP PANEL DUE TO HX OF DRUG ABUSE; FOLLOW LFTs WITH S[facility] LAB[facility] TOBACCO ABUSE; COUNSELING GIVEN ILLICIT DRUG ABUSE; COUNSELING GIVEN DC PER CLINICAL COURSE PROGNOSIS IS GUARDED Quality VTE Deep Vein Thrombosis/Pulmonary Embolism Present on Admission: No
[2018-01-30 11:21] LABS: Acinetobacter baumannii Not Detected (Not Detect); Candida albicans Not Detected (Not Detect); Candida glabrata Not Detected (Not Detect); E. coli Detected (Not Detect); Enterobacter cloacae complex Not Detected (Not Detect); Enterobacteriaceae species Detected (Not Detect); Enterococcus species Not Detected (Not Detect); Haemophilus influenzae Not Detected (Not Detect); KPC (carbapenem-resist gene) Not Detected (Not Detect); Listeria monocytogenes Not Detected (Not Detect); Neisseria meningitidis Not Detected (Not Detect); Proteus species Not Detected (Not Detect); Pseudomonas aeruginosa Not Detected (Not Detect); Serratia marcescens Not Detected (Not Detect); Staphylococcus species Not Detected (Not Detect); Streptococcus agalactiae (Gr B Not Detected (Not Detect); Streptococcus pneumonia Not Detected (Not Detect); Streptococcus pyogenes (Gr A) Not Detected (Not Detect); Streptococcus species Not Detected (Not Detect)
[2018-01-30 11:22] LABS: Candida krusei Not Detected (Not Detect); Candida parapsilosis Not Detected (Not Detect); Candida tropicalis Not Detected (Not Detect)
[2018-01-30 11:53] LABS: Lactate (Lactic Acid) 1.8 mmol/L (0.7-2.1)
[2018-01-30] MEDS: ACETAMINOPHEN 325 MG TABLET 650 MG PO (21:11)
[2018-01-30] MEDS: SENNOSIDES 8.6 MG TABLET 17.2 MG PO (21:11)
[2018-01-30] MEDS: CEFTRIAXONE 1 GM/50 ML FROZ.PIGGY IV (21:17)
[2018-01-31] VITALS (9 sets, daily range): BP systolic 87–110; BP diastolic 48–58; PULSE 72–103; RESP 16–20; TEMP 36.7–38.5; O2SAT 97–100
[2018-01-31] MEDS: DEXTROSE 5%-0.45% NS 1,000 ML 100 ML IV ×3 (03:11→23:52)
--- NOTE | 2018-01-31 04:43 | PC.NURSE ---
Shift: Per fall risk tool pt is a moderate fall risk but due to being on IV fluids and repeatedly not using call light appropriately, states I have to pee so quickly, I don't have time to find the button to call, will be high fall risk for this shift and have a bed alarm.
[2018-01-31 05:54] LABS: Add Manual Diff / Slide Review NO; Basophils Percent Auto 0.3 % (0-2); Eosinophils Percent Auto 0.9 % (2-4); Hematocrit 33.1 % (36-46); Hemoglobin 11.3 g/dL (12.0-16.0); Lymphocytes Percent Auto 20.7 % (25-40); Mean Corpuscular Hemoglobin 30.2 PG (26-34); Mean Corpuscular Volume 88.9 fL (80-100); Neutrophils Absolute Auto 2100 /uL (3000-5900); Neutrophils Percent Auto 65.1 % (50-75); Platelet Count 79 X10^3/uL (150-400); Red Blood Cell Count 3.73 X10^6/uL (4.0-5.2); Red Cell Distribution Width 13.5 % (11.6-14.8); White Blood Cell Count 3.3 X10^3/uL (4.5-11.0)
[2018-01-31] MEDS: ACETAMINOPHEN 325 MG TABLET 650 MG PO ×2 (05:55→12:13)
[2018-01-31 06:05] LABS: Alanine Aminotransferase 119 IU/L (9-52); Albumin 2.9 g/dL (3.5-5.0); Alkaline Phosphatase 94 U/L (38-126); Aspartate Aminotransferase 81 IU/L (14-36); BUN Creatinine Ratio 11.4 (6-22); Bilirubin Total 0.2 mg/dL (0.2-1.3); Blood Urea Nitrogen 8 mg/dL (7-17); Calcium 7.9 mg/dL (8.4-10.2); Carbon Dioxide 24 mmol/L (22-32); Chloride 104 mmol/L (98-107); Estimated Glomerular Filt Rate > 60.0 mL/min (>60); Globulin 2.8 g/dL (1.7-4.1); Glucose 105 mg/dL (70-100); HEMOLYSIS < 15 (0-50); Magnesium 1.9 mg/dL (1.6-2.3); Phosphorous 2.7 mg/dL (2.5-4.5); Potassium 4.3 mmol/L (3.4-5.1); Sodium 138 mmol/L (137-145); Total Protein 5.7 g/dL (6.3-8.2)
[2018-01-31] MEDS: DOCUSATE 100 MG CAPSULE PO (10:05)
--- NOTE | 2018-01-31 14:45 | PM.PN.1 ---
Subjective Date Patient Seen: 01/31/18 Time Patient Seen: 14:45 Interval history: STATED FEELING SLEEPY THIS AM NO CP/SOB NO FEVER OR CHILLS NO OTHER COMPLAINTS Exam Vital Signs (past 8 hours): - 01/31/18 08:47 01/31/18 09:05 01/31/18 12:20 Temperature 98.2 F 98.0 F Pulse Rate 80 72 Respiratory Rate 16 20 Blood Pressure 100/54 L 92/50 L Pulse Oximetry 97 99 100 Oxygen Delivery Method Room Air Narrative Exam Narrative: NO ACUTE DISTRESS. PATIENT IS ALERT ORIENTED X3. VITAL SIGNS STABLE HEAD ATRAUMATIC NORMOCEPHALIC NECK : SUPPLE WITHOUT ADENOPATHY EYE: EOMI, PERRLA, NORMAL CONJUNCTIVA CHEST: REGULAR RATE.. NO RUBS. PMI IS NON DISPLACED. NO MURMURS PULMONARY: DECREASED BS OVER THE BASES. MILD BIBASILAR CRACKLES NOTED; NO INCREASED DULLNESS TO PERCUSSION ABDOMEN: SOFT; NON TENDER; BS + IN ALL 4 QUAD EXTREMITIES:NO EDEMA.. NO CYANOSIS OR CLUBBING NOTED. NEURO: CRANIAL NERVES 2-12 GROSSLY INTACT. NO FOCAL NEUROLOGICAL DEFICIT NOTED. MSK: NORMAL RANGE OF MOTION FOR AGE. NO JOINT EFFUSION. SKIN: NORMAL FOR ETHNICITY; NO ECCHYMOSIS. NO LESION. GOOD TURGOR.; NORASHES : NORMAL EXTERNAL GENITALIA. PSYCH : APPROPRIATE MOOD AND AFFECT. ALERT AWAKE ORIENTED X3 Objective Labs Result Diagrams: 01/31/18 05:31 01/31/18 05:31 Labs: Laboratory Results - last 24 hr 01/31/18 01/31/18 05:31 05:31 WBC 3.3 L RBC 3.73 L Hgb 11.3 L Hct 33.1 L MCV 88.9 MCH 30.2 MCHC 34.0 RDW 13.5 Plt Count 79 L Neut % (Auto) 65.1 Lymph % (Auto) 20.7 L [place] % (Auto) 13.0 Eos % (Auto) 0.9 L Baso % (Auto) 0.3 Neut # (Auto) 2100 L Sodium 138 Potassium 4.3 Chloride 104 Carbon Dioxide 24 BUN 8 Creatinine 0.70 Estimated GFR > 60.0 BUN/Creatinine Ratio 11.4 Glucose 105 H Calcium 7.9 L Phosphorus 2.7 Magnesium 1.9 Total Bilirubin 0.2 AST 81 H ALT 119 H Alkaline Phosphatase 94 Total Protein 5.7 L Albumin 2.9 L Globulin 2.8 Albumin/Globulin Ratio 1.0 Assessment & Plan Plan: Assessment/Plan Narrative: IMPRESSION AND PLAN SEPSIS ; EVIDENCED BY LIVER DYSFUNCTION AND WBC <4000 ; LIKELY DUE TO UTI AND POA; RESOLVING; CONT WITH ABX AND IVF FOR NOW; WATCH VITALS AND VITAL ORGANS CLOSELY WITH SERIAL LABS; TREAT INDICATED ; PROGNOSIS IS GUARDED ECOLI UTI; CONT CURRENT ABX; CX AND SENSITIVITY REPORT NOTED; MEEKS SENSITIVE ECOLI REPORTED; WILL HOWEVER CONT ON CURRENT ABX UNTIL REPEATED BLOOD CX ARE NEG ; THEN ADJUST ABX INDICATED ECOLI BACTEREMIA; BLOOD CX REPEATED; CONT CURRENT ABX FOR NOW; WILL HOWEVER CONT ON CURRENT ABX UNTIL REPEATED BLOOD CX ARE NEG ; THEN ADJUST ABX INDICATED POOR HYGIENE; COUNSELING GIVEN POOR DENTITION; OUTPATIENT MANAGEMENT MODERATE TO SEVERE PROTEIN DEF MALNUTRITION; INSTRUMENT SPECIALIST ON BOARD; ENSURE WITH EACH MEAL ANEMIA; CHRONIC DISEASE VS OTHER; MONITOR H FOR NOW PANCYTOPENIA; MONITOR FOR NOW; COULD BE RELATED TO SEPSIS; RTEAT INDICATED HYPERGLYCEMIA; POSS PREDM VS DM; OUTPATIENT WORKUP INDICATED; MONITOR FOR NOW TRANSAMINITIS ; GET HEP PANEL DUE TO HX OF DRUG ABUSE; FOLLOW LFTs WITH SERIAL LABS TOBACCO ABUSE; COUNSELING GIVEN ILLICIT DRUG ABUSE; COUNSELING GIVEN DC PER CLINICAL COURSE PROGNOSIS IS GUARDED Quality VTE Deep Vein Thrombosis/Pulmonary Embolism Present on Admission: No
--- NOTE | 2018-01-31 17:32 | PC.NURSE ---
Addendum entered by Sonya Cruz R.N. 01/31/18 22:34: pt's significant other, Brad, discloed to this RN typewriter aligner that pt has been having an increase in irritability and states she may be starting to withdraw from meth/opioid use (last meth use was day of or prior to admission, and last suboxone use was 01/27). pt also stopped treatment at [facility] in late Nov. or early Dec. and has known to have a stash of leftover suboxone at home. significant other voicing concern that pt may become difficult to comply with current care if her medications/drug use history is not addressed. information relayed to [facility] shift PATIENT APPOINTMENT COORDINATOR. pt currently resting comfortably. will continue to monitor. Original Note: SHIFT NOTE Received pt sleeping, wakens to verbal stimuli. ox3, SBA for ADLs. denies pain, dizziness, or dysuria. pt very tearful and frustrated that bed alarm is on and that she needs to call for staff when doing OOB activity, despite verbally stating understanding about safety while in the hospital. pt's significant other at bedside sataing he is will to assist pt with ADLs. pt in verbal agreement with staff to call for assistance if she feels dizzy or if significant other leaves the room, and bed alarm will be left off and BSC brought to bedside. call light within reach.
[2018-01-31] MEDS: CEFTRIAXONE 1 GM/50 ML FROZ.PIGGY IV (21:01)
[2018-01-31] MEDS: NICOTINE 14 PATCH 14 MG TOP (21:01)
--- NOTE | 2018-01-31 23:57 | PC.NURSE ---
refused bed alarm
[2018-02-01] VITALS (7 sets, daily range): BP systolic 97–117; BP diastolic 54–69; PULSE 76–81; RESP 16–24; TEMP 36.5–37; O2SAT 97–100
--- NOTE | 2018-02-01 00:05 | PC.NURSE ---
Pt. took nicotine patch off, she didn't think she needs it this time.
--- NOTE | 2018-02-01 14:09 | PM.PN.1 ---
Subjective Date Patient Seen: 02/01/18 Time Patient Seen: 10:19 Interval history: FEELING LIKE SHE IS WITHDRAWING FROM OPIOID SUBSTANCES NO FRANCO/MIGRAINE NO FEVER OR CHILLS NO SIGNIFICANT ISSUES OVERNIGHT Exam Vital Signs (past 8 hours): - 02/01/18 06:11 02/01/18 07:34 02/01/18 08:59 Temperature 98.6 F 98.1 F Pulse Rate 80 77 Respiratory Rate 18 24 Blood Pressure 107/56 L 107/69 Pulse Oximetry 100 97 100 Oxygen Delivery Method Room Air Oxygen Flow Rate 0 Narrative Exam Narrative: NO ACUTE DISTRESS. PATIENT IS ALERT ORIENTED X3. VITAL SIGNS STABLE HEAD ATRAUMATIC NORMOCEPHALIC NECK : SUPPLE WITHOUT ADENOPATHY EYE: EOMI, PERRLA, NORMAL CONJUNCTIVA CHEST: REGULAR RATE.. NO RUBS. PMI IS NON DISPLACED. NO MURMURS PULMONARY: DECREASED BS OVER THE BASES. MILD BIBASILAR CRACKLES NOTED; NO INCREASED DULLNESS TO PERCUSSION ABDOMEN: SOFT; NON TENDER; BS + IN ALL 4 QUAD EXTREMITIES:NO EDEMA.. NO CYANOSIS OR CLUBBING NOTED. NEURO: CRANIAL NERVES 2-12 GROSSLY INTACT. NO FOCAL NEUROLOGICAL DEFICIT NOTED. MSK: NORMAL RANGE OF MOTION FOR AGE. NO JOINT EFFUSION. SKIN: NORMAL FOR ETHNICITY; NO ECCHYMOSIS. NO LESION. GOOD TURGOR.; NORASHES : NORMAL EXTERNAL GENITALIA. PSYCH : APPROPRIATE MOOD AND AFFECT. ALERT AWAKE ORIENTED X3 Objective Labs Result Diagrams: 01/31/18 05:31 01/31/18 05:31 Labs: Laboratory Results - last 24 hr 01/29/18 19:35 Lactate 2.5 H Assessment & Plan Plan: Assessment/Plan Narrative: IMPRESSION AND PLAN SEPSIS ; LARON TO UTI; RESOLVED; CONT WITH CURRENT ABX ; WATCH VITALS AND VITAL ORGANS CLOSELY WITH SERIAL LABS; TREAT INDICATED ; PROGNOSIS IS GUARDED ECOLI UTI; CONT CURRENT ABX; FOLLOW CX AND SENSITIVITY REPORT; ADJUST ABX INDICATED ECOLI BACTEREMIA; BLOOD CX REPEATED AND ARE NEG SO FAR AFTER 24 HRS; CONT CURRENT ABX FOR NOW; SWITCH TO ORAL ONCE INDICATED POOR HYGIENE; COUNSELING GIVEN POOR DENTITION; OUTPATIENT MANAGEMENT ANEMIA; CHRONIC DISEASE VS OTHER; MONITOR H FOR NOW PANCYTOPENIA; MONITOR FOR NOW; COULD BE RELATED TO SEPSIS; RTEAT INDICATED HYPERGLYCEMIA; POSS PREDM VS DM; OUTPATIENT WORKUP INDICATED; MONITOR FOR NOW TRANSAMINITIS ; GET HEP PANEL DUE TO HX OF DRUG ABUSE; FOLLOW LFTs WITH SERIAL LABS TOBACCO ABUSE; COUNSELING GIVEN ILLICIT DRUG ABUSE; COUNSELING GIVEN DC PER CLINICAL COURSE DC POSS IN NEXT 48HRS IF CX ARE NEG PROGNOSIS IS GUARDED Quality VTE Deep Vein Thrombosis/Pulmonary Embolism Present on Admission: No
[2018-02-01] MEDS: ALPRAZolam 0.25 MG TABLET PO ×2 (14:56→21:01)
--- NOTE | 2018-02-01 16:15 | CM.SWNOTE ---
Addendum entered by ALEJANDRINA Antony 02/02/18 15:08: Attempts throughout the day for assessment. Pt is sound asleep, SO sleeping at the window bench, 0830, 1100 and 1200. Last attempt, pt was showering. Hope to speak w/pt Sunday unless she leaves AMA before that time. Original Note: Attempted CD assessment today, pt sleeping. Notes indicate pt feels she is beginning w/d process. Will attempt tomorrow, Sunday. Possible DC w/in 48 hrs. ALEJANDRINA Antony
--- NOTE | 2018-02-01 17:59 | PC.NURSE ---
Addendum entered by Cecilia Urena R.N. 02/01/18 19:59: Pt lying quietly in bed and checked on by this caption writer. Rouses to movement in room and states, I'm going through withdrawal. Admits to pain, all over and nausea. Skin is warm to touch and clammy. Administered morphine, tylenol and zofran. Pt's S.O. arrives and pt perks up. Provided with oral fluids and foods as requested. States, feeling better. Discussed administration of xanax when dose is due and pt in agreement. Encouraged to call for needs. S.O. rooming in. Original Note: Resting quietly in bed without signs of distress or discomfort.
[2018-02-01] MEDS: MORPHINE 2 MG/ML INJ IV ×2 (19:12→21:54)
[2018-02-01] MEDS: ONDANSETRON 4 MG/2 ML INJ IV (19:13)
[2018-02-01] MEDS: ACETAMINOPHEN 325 MG TABLET 650 MG PO (19:13)
[2018-02-01] MEDS: CEFTRIAXONE 1 GM/50 ML FROZ.PIGGY IV (21:01)
[2018-02-01] MEDS: SODIUM CHLORIDE 0.9% FLUSH 10 ML IV (21:02)
[2018-02-02] VITALS: BP 86/47; PULSE 78; RESP 16; TEMP 36.6; O2SAT 99
[2018-02-02 00:42] VITALS: O2SAT 99
[2018-02-02 05:42] LABS: Add Manual Diff / Slide Review NO; Basophils Percent Auto 0.4 % (0-2); Eosinophils Percent Auto 1.6 % (2-4); Hematocrit 34.7 % (36-46); Hemoglobin 11.9 g/dL (12.0-16.0); Lymphocytes Percent Auto 29.7 % (25-40); Mean Corpuscular HGB Conc 34.2 % (30-36); Mean Corpuscular Hemoglobin 30.1 PG (26-34); Mean Corpuscular Volume 87.9 fL (80-100); Monocytes Percent Auto 9.1 % (3-14); Neutrophils Absolute Auto 4000 /uL (3000-5900); Neutrophils Percent Auto 59.2 % (50-75); Platelet Count 154 X10^3/uL (150-400); Red Blood Cell Count 3.95 X10^6/uL (4.0-5.2); Red Cell Distribution Width 13.5 % (11.6-14.8); White Blood Cell Count 6.8 X10^3/uL (4.5-11.0)
[2018-02-02 05:51] LABS: Alanine Aminotransferase 180 IU/L (9-52); Alkaline Phosphatase 82 U/L (38-126); Aspartate Aminotransferase 102 IU/L (14-36); Bilirubin Total 0.1 mg/dL (0.2-1.3); Blood Urea Nitrogen 12 mg/dL (7-17); Calcium 8.2 mg/dL (8.4-10.2); Carbon Dioxide 29 mmol/L (22-32); Chloride 102 mmol/L (98-107); Estimated Glomerular Filt Rate > 60.0 mL/min (>60); Globulin 2.9 g/dL (1.7-4.1); Glucose 88 mg/dL (70-100); HEMOLYSIS < 15 (0-50); Potassium 4.6 mmol/L (3.4-5.1); Sodium 140 mmol/L (137-145); Total Protein 5.9 g/dL (6.3-8.2)
[2018-02-02 06:23] VITALS: BP 88/52; PULSE 84; RESP 16; TEMP 36.7; O2SAT 98
[2018-02-02 07:00] VITALS: O2SAT 100
--- NOTE | 2018-02-02 08:39 | PC.NURSE ---
Addendum entered by Declan Carrion R.N. 02/02/18 11:25: Continues sleeping off and on makes request known but not overly motivated. Xanax given earlier of good effect. Original Note: Pt rouses to name and follows commands. Offers no overt c/o pain or discomfort or nausea. Requesting oatmeal for b'fast. S.o. at bedside.
[2018-02-02 09:00] VITALS: BP 104/54; PULSE 78; RESP 16; TEMP 36.5; O2SAT 100
[2018-02-02] MEDS: ALPRAZolam 0.25 MG TABLET PO (09:43)
[2018-02-02] MEDS: SODIUM CHLORIDE 0.9% FLUSH 10 ML IV (09:43)
--- NOTE | 2018-02-02 10:45 | PM.PN.1 ---
Subjective Date Patient Seen: 02/02/18 Interval history: NO CPSOB NOT SLEEPING WELL PAIN IS FAIRLY CONTROLLED HAVING BMs QUESTIONS AND CONCERNS ADDRESSED Exam Vital Signs (past 8 hours): - 02/02/18 06:23 02/02/18 09:00 Temperature 98.0 F 97.7 F Pulse Rate 84 78 Respiratory Rate 16 16 Blood Pressure 88/52 L 104/54 L Pulse Oximetry 98 100 Oxygen Delivery Method Room Air Oxygen Flow Rate 0 Narrative Exam Narrative: NO ACUTE DISTRESS. PATIENT IS ALERT ORIENTED X3. VITAL SIGNS STABLE HEAD ATRAUMATIC NORMOCEPHALIC NECK : SUPPLE WITHOUT ADENOPATHY EYE: EOMI, PERRLA, NORMAL CONJUNCTIVA CHEST: REGULAR RATE.. NO RUBS. PMI IS NON DISPLACED. NO MURMURS PULMONARY: DECREASED BS OVER THE BASES. MILD BIBASILAR CRACKLES NOTED; NO INCREASED DULLNESS TO PERCUSSION ABDOMEN: SOFT; NON TENDER; BS + IN ALL 4 QUAD EXTREMITIES:NO EDEMA.. NO CYANOSIS OR CLUBBING NOTED. NEURO: CRANIAL NERVES 2-12 GROSSLY INTACT. NO FOCAL NEUROLOGICAL DEFICIT NOTED. MSK: NORMAL RANGE OF MOTION FOR AGE. NO JOINT EFFUSION. SKIN: NORMAL FOR ETHNICITY; NO ECCHYMOSIS. NO LESION. GOOD TURGOR.; NORASHES : NORMAL EXTERNAL GENITALIA. PSYCH : APPROPRIATE MOOD AND AFFECT. ALERT AWAKE ORIENTED X3 Objective Labs Result Diagrams: 02/02/18 05:25 02/02/18 05:25 Labs: Laboratory Results - last 24 hr 02/02/18 02/02/18 05:25 05:25 WBC 6.8 D RBC 3.95 L Hgb 11.9 L Hct 34.7 L MCV 87.9 MCH 30.1 MCHC 34.2 RDW 13.5 Plt Count 154 Neut % (Auto) 59.2 Lymph % (Auto) 29.7 [place] % (Auto) 9.1 Eos % (Auto) 1.6 L Baso % (Auto) 0.4 Neut # (Auto) 4000 Sodium 140 Potassium 4.6 Chloride 102 Carbon Dioxide 29 BUN 12 Creatinine 0.80 Estimated GFR > 60.0 BUN/Creatinine Ratio 15.0 Glucose 88 Calcium 8.2 L Total Bilirubin 0.1 L AST 102 H ALT 180 H Alkaline Phosphatase 82 Total Protein 5.9 L Albumin 3.0 L Globulin 2.9 Albumin/Globulin Ratio 1.0 Assessment & Plan Plan: Assessment/Plan Narrative: IMPRESSION AND PLAN SEPSIS ; LARON TO UTI; RESOVING; CONT WITH ABX AND IVF FOR NOW; WATCH VITALS AND VITAL ORGANS CLOSELY WITH SERIAL LABS; TREAT INDIATED ; PROGNOSIS IS GUARDED ECOLI UTI; CONT CURRENT ABX; FOLLOW CX AND SENSITIVITY REPORT; ADJUST ABX INDICATED ECOLI BACTEREMIA; REPEAT BX REMAINS NEG X 24HRS FOR NOW; CONT CURRENT ABX FOR NOW POOR HYGIENE; COUNSELING GIVEN POOR DENTITION; OUTPATIENT MANAGEMENT ANEMIA; CHRONIC DISEASE VS OTHER; MONITOR H FOR NOW PANCYTOPENIA; MONITOR FOR NOW; COULD BE RELATED TO SEPSIS; REPEAT LABS INDICATED HYPERGLYCEMIA; POSS PREDM VS DM; OUTPATIENT WORKUP INDICATED; MONITOR FOR NOW TRANSAMINITIS ; GET HEP PANEL DUE TO HX OF DRUG ABUSE; FOLLOW LFTs WITH SERIAL LABS TOBACCO ABUSE; COUNSELING GIVEN ILLICIT DRUG ABUSE; COUNSELING GIVEN DC PER CLINICAL COURSE LIKELY A 3 DAYS OF NEG BLOOD CX ENTICIPATE DC ON 02/04 IF STABLE PROGNOSIS IS GUARDED Quality VTE Deep Vein Thrombosis/Pulmonary Embolism Present on Admission: No
[2018-02-02 13:00] VITALS: BP 99/65; PULSE 79; RESP 16; TEMP 36.7; O2SAT 100
[2018-02-02] MEDS: MORPHINE 2 MG/ML INJ IV (14:53)
--- NOTE | 2018-02-02 15:55 | PC.NURSE ---
During shift report care management reported to this newspaper writer, and tam RN, pt desired to leave AMA. This newspaper writer and tam RN entered pt's room with offer of Xanax to treat anxiety. Pt up in room, pacing, tearful, fully dressed on telephone looking for mother. Offered Xanax and any other meds pt felt were needed as this newspaper writer informed pt and pt's S.O. who is also present in room, this newspaper writer can contact provider to obtain orders. Pt tearfully declines. I gotta get home to my baby. Pt further states, I need a cigarette, these patches aren't helping. Pt's S.O. encourages pt to stay and pt verbally dismisses S.O. instructing him to remain quiet. This newspaper writer inquired if there is anything nursing staff can do to encourage pt to stay throughout the weekend for IV antibiotics as ordered by . Pt states, No, I need to get out of here, the anxiety.... Verbal exchange with disagreement continues with pt and pt's S.O. Security was notified pt has received narcotics and should not be driving and is leaving AMA. Pt states will not drive and S.O. states unwilling to drive pt. Pt attempting to phone mother for ride. Pt packs all belongings and signs AMA form. This newspaper writer informed pt consequences of leaving AMA are worsening condition. Informed pt if desires to return will need to report to E.R. and begin admission process again. Pt acknowledges understanding. Operations General Agent, Berna, informed. Pt left with belongings, ambulatory with security compliance engineer from hospital. IV was removed prior to discharge by this newspaper writer. Dr. Cee was notified face to face of these events. writes script for oral antibiotics and requests charge nurse phone pt to come to hospital to pick this up. This was accomplished by pipe joints supervisor, Berna. assistant brand manager, Nani, was informed of these events as they transpired. Last evening, pt did discuss with this newspaper writer living conditions at home with self, S.O., 3 year old child, child's father and pt's mother living together. Pt informed this newspaper writer child is under care of mother while pt hospitalized. Pt did not verbalize complete confidence in this care arrangement. assistant brand manager again informed.
--- NOTE | 2018-02-02 16:07 | P.DS_ITS ---
History of Present Illness Date Patient Seen: 02/02/18 Time Patient Seen: 16:01 Chief complaint: SHAKING, BACK PAIN Narrative: Patient is a 32 y/o female with a history of methamphetamine and opioid abuse who presents with five days of diarrhea,followed by dysuria, shaking chills, fever, and flank pain. The patient was well until five days ago. She reports she developed the squirts which quickly resolved. Yesterday she developed shaking chills and fever. Today she developed dysuria and flank pain. Her mother has a history of frequent UTI's. The patient has had UTI's in the past but never pyelo. She was evaluated in the hospital and found to be tachycardic with a heart rate of 130, left shift, and flank pain. The patient had a positive urine and is now admitted for further evaluation. Her lactate was elevated at 2.5, she was given IV fluids, started on antibiotics with plans for admission to the hospital. Patient believes she has lost about 15 pounds Discharge Providers Date of admission: 01/29/18 21:07 Consults: 01/29/18 22:01 Consult to Dietitian, Adult Routine Comment: Reason For Exam: protein calorie malnutrition 01/29/18 23:17 Consult to Respiratory Therapy Evaluate & Treat Comment: Physician Instructions: Evaluate and treat Consult to Supervisor Blast Furnace Routine Comment: resources, most of the time safe enviro Discharge provider: Lona Navas DO Discharge Date: 02/02/18 Summary Discharge Diagnosis: ECOLI BACTEREMIA ECOLI UTI ILLICIT DRUG USE PROTEIN DEFICIENCY MALNUTRITION TOBACCO ABUSE/ NICOTINE ADDICTION MEDICAL NON COMPLIANCE Hospital Course: - PATIENT WAS BEING TREATED FOR BACTEREMIA AND UTI WITH E COLI BEING THE CULPRIT - SHE NEEDED TO STAY UNTIL HER REPEAT BLOOD CX REMAINED NEG FOR AT LEAST 72 HRS - HOWEVER TODAY, SHE DECIDED THAT SHE NEEDED TO LEAVE THE HOSPITAL AGAINST MEDICAL ADVICE - A RX WAS WRITTEN FOR HER TO TAKE TO HER PHARMACY IF SHE COULD FIND SOMEONE TO COME AND PICK IT UP AT THE NURSING DESK - I SPOKE TO HER NURSE REGARDING CASE - I ALSO SPOKE TO THE PATIENT OUTSIDE OF THE HOSPITAL AND TRIED AND CONVINCE HER TO RETURN BUT SHE CHOSE TO LEAVE ANYWAY. Status at Discharge Cognitive/behavioral status at discharge: IMPROVED BUT POOR INSIGHT Functional status at discharge: independent ambulation Overall status at discharge: patient is back to baseline Time Spent with Patient Less than 30 minutes Exam Vital Signs (past 8 hours): - 02/02/18 09:00 02/02/18 13:00 Temperature 97.7 F 98.1 F Pulse Rate 78 79 Respiratory Rate 16 16 Blood Pressure 104/54 L 99/65 Pulse Oximetry 100 100 Oxygen Delivery Method Room Air Oxygen Flow Rate 0 Objective Labs Result Diagrams: 02/02/18 05:25 02/02/18 05:25 Labs: Laboratory Results - last 24 hr 02/02/18 02/02/18 05:25 05:25 WBC 6.8 D RBC 3.95 L Hgb 11.9 L Hct 34.7 L MCV 87.9 MCH 30.1 MCHC 34.2 RDW 13.5 Plt Count 154 Neut % (Auto) 59.2 Lymph % (Auto) 29.7 [place] % (Auto) 9.1 Eos % (Auto) 1.6 L Baso % (Auto) 0.4 Neut # (Auto) 4000 Sodium 140 Potassium 4.6 Chloride 102 Carbon Dioxide 29 BUN 12 Creatinine 0.80 Estimated GFR > 60.0 BUN/Creatinine Ratio 15.0 Glucose 88 Calcium 8.2 L Total Bilirubin 0.1 L AST 102 H ALT 180 H Alkaline Phosphatase 82 Total Protein 5.9 L Albumin 3.0 L Globulin 2.9 Albumin/Globulin Ratio 1.0 Discharge Plan Discharge Plan Patient Disposition: Left Against Medical Advice Discharge Med Rec/Prescriptions Prescriptions: New levofloxacin [Levaquin] 750 mg tablet 750 mg PO DAILY Qty: 14 RF: 0 Continue acyclovir [Zovirax] 800 MG tablet 800 mg PO BID PRN (Reason: hsv) Qty: 0 RF: 0 ibuprofen 200 MG tablet 200 mg PO Q4HP PRN (Reason: Pain (Scale Score 1-3)) Qty: 0 RF: 0 valacyclovir 500 mg Tablet 500 mg PO BID RF: 0 ibuprofen 600 mg tablet 600 mg PO Q6-8H PRN (Reason: pain) Qty: 30 RF: 0 Provider Discharge Instructions Diet: Regular Discharge Data Attending Provider: Bette Gibson Admit Date/Time: 01/29/18 21:07 Quality VTE Deep Vein Thrombosis/Pulmonary Embolism Present on Admission: No
--- NOTE | 2018-02-02 16:13 | PC.NURSE ---
requested that I call the patient and have her come back to get a prescription for po Levaquin. Pt agreed and I meet her downstairs near the admitting desk. I explained to her that its very important that she take the antibiotic once a day everyday for 2 weeks, Smitha acknowledged that she understood. Asked her if she was sure she couldn't stay as a patient and she was adamant to leave AMA.
[2018-02-03 14:27] LABS: Hepatitis A Antibody IgM NONREACTIVE (NONREACTIVE); Hepatitis Acute Panel Interp 0.01 (NONREACTIVE); Hepatitis B Core Antibody IgM NONREACTIVE (NONREACTIVE); Hepatitis B Surface Antigen NONREACTIVE (NONREACTIVE); Hepatitis C Antibody NONREACTIVE
== END 2018-02-02 15:35 | disposition left against medical advice (07) | DRG 720 ==
LOC: ED 20:59 → AC 01-30 07:23
PROVIDERS: Hospitalist; Admitting Provider Internal Medicine; Emergency Provider Emergency Medicine; Visit Provider Internal Medicine
DX: A41.51 Sepsis due to Escherichia coli [E. coli] (principal); N39.0 Urinary tract infection, site not specified; D61.818 Other pancytopenia; E87.1 Hypo-osmolality and hyponatremia; Z68.1 Body mass index [BMI] 19.9 or less, adult; E43 Unspecified severe protein-calorie malnutrition; F17.210 Nicotine dependence, cigarettes, uncomplicated; Z91.19 Patient's noncompliance with other medical treatment and regimen; F15.90 Other stimulant use, unspecified, uncomplicated; F11.90 Opioid use, unspecified, uncomplicated
CPT/HCPCS: 36415; 36591; 80048; 80053; 80074; 81003; 81015; 81025; 83605; 83735; 84100; 84145; 85025; 87040; 87077; 87086; 87150; 87186; 87205; 94762; 96361; 96365; 99284; 99406; J2270; J2405

== ENCOUNTER 2020-03-04 02:08 | Emergency (ER) | payer OTHER, MEDICAID, SELFPAY ==
[2018-01-29 22:49] VITALS: BMI 17.2
[2020-03-04 02:18] VITALS: BP 148/92; PULSE 101; RESP 16; TEMP 36.8; O2SAT 99; BMI 18.3
[2020-03-04 02:43] LABS: COVID19 -Nasal RAPID Negative (Negative)
--- NOTE | 2020-03-04 02:43 | ED_ITS ---
HPI - URI/Sore Throat General Chief Complaint: Upper Respiratory Symptoms Stated Complaint: Direct contact with COVID, cough Time Seen by Provider: 03/04/20 02:17 Source: patient Mode of arrival: Ambulatory Limitations: no limitations History of Present Illness HPI Narrative: Patient is a 34-year-old female with history of polysubstance abuse heroin and methamphetamines who presents with wanting COVID test. She s tates that her mother was tested positive and she lives with her mother. Also her son and his father were here earlier in the day and wanted test. She has a mild cough but denies any fever or chills no loss of taste or smell Complaint: cough Related Data Home Medications Medication Instructions Recorded Confirmed acyclovir [Zovirax] 800 mg PO BID PRN #0 11/10/12 01/29/18 ibuprofen 200 mg PO Q4HP PRN #0 tab 11/10/12 01/29/18 valacyclovir 500 mg PO BID 01/29/18 01/29/18 Previous Rx's Medication Instructions Recorded ibuprofen 600 mg PO Q6-8H PRN #30 tab 01/01/18 levofloxacin [Levaquin] 750 mg PO DAILY #14 tab 02/02/18 Allergies Allergy/AdvReac Type Severity Reaction Status Date / Time acetaminophen [From Vicodin] Allergy Mild Itchy Verified 03/04/20 02:19 hydrocodone [From Vicodin] Allergy Mild Itchy Verified 03/04/20 02:19 Review of Systems Review of Systems Narrative: GENERAL: Denies chills,fever HEENT: Denies throat pain RESPIRATORY: See HPI CARDIOVASCULAR: Denies chest pain, palpitations GASTROINTESTINAL: Denies nausea, vomiting MUSCULOSKELETAL: Denies extremity pain, injury SKIN: No rash, no laceration, no pruritus NEUROLOGIC: Denies weakness, dizziness, headache, numbness 8 point review of systems is negative except for those stated above and HPI Patient History Medical History Asthma Dental abscess HSV-1 (herpes simplex virus 1) infection IBS (irritable bowel syndrome) Methamphetamine abuse Opioid abuse Surgical History History of section History of tonsillectomy No significant past surgical history [place] teeth removed Family History Father No problems noted. Mother Fibromyalgia Rheumatoid arthritis Social History household members: significant other, family and children Smoking Status: Current every day smoker alcohol intake: current additional social history: She is on Suboxone due to a history of opioid abuse. Smoking Status: Current every day smoker alcohol intake frequency: holidays/special occasions only Substance Use Type: heroin and methamphetamine Exam Initial Vital Signs Initial Vital Signs: Vital Signs Temperature 98.2 F 03/04/20 02:18 Pulse Rate 101 H 03/04/20 02:18 Respiratory Rate 16 03/04/20 02:18 Blood Pressure 148/92 H 03/04/20 02:18 Pulse Oximetry 99 03/04/20 02:18 GENERAL: Thin 34-year-old female and in no acute distress. HEENT: Head atraumatic,EOMI, pupils reactive, face symmetric, moist mucous membranes CARDIOVASCULAR: Regular rate and rhythm without murmurs, rubs or gallops. RESPIRATORY: Breath sounds equal bilaterally, no wheezes rales or rhonchi. EXTREMITIES: Normal range of motion, no clubbing or edema. Neurovascularly intact NEUROLOGICAL: Alert and oriented x4.Normal gait and speech. Cranial nerves II through XII grossly intact. SKIN: Warm, dry, no laceration, no petechiae, no rashes or lesions. Course Orders Ordered: ED Orders 03/04/20 02:25 COVID19 Stat Vital Signs Vital signs: Vital Signs - 8 hr 03/04/20 02:18 Temperature 98.2 F Pulse Rate 101 H Respiratory Rate 16 Blood Pressure 148/92 H Pulse Oximetry 99 MDM - URI/Sore Throat Lab Data Labs: Lab Results 03/04/20 Range/Units 02:19 SARS-CoV-2 (PCR) Negative (Negative) Discharge Plan Departure Patient Disposition: Home Clinical Impression: Cough with exposure to COVID-19 virus Activity Restrictions/Additional Instructions: You have been exposed to COVID 19 please follow the guidelines below and quarantine for 14 days after last contact with someone who has had COVID. It is recommended that you buy a home pulse oximeter and monitor your oxygen levels. Return to the ER if your oxygen is below 88% Return to the ER if you are having significant shortness of breath. Please follow-up with her primary care provider in the next 2-3 did Who needs to quarantine? People who have been in close contact with someone who has COVID-19?excluding people who have had COVID-19 within the past 3 months. People who have tested positive for COVID-19 within the past 3 months and recovered do not have to quarantine or get tested again as long as they do not develop new symptoms. People who develop symptoms again within 3 months of their first bout of COVID-19 may need to be tested again if there is no other cause identified for their symptoms. What counts as close contact? You were within 6 feet of someone who has COVID-19 for a total of 15 minutes or more You provided care at home to someone who is sick with COVID-19 You had direct physical contact with the person (hugged or kissed them) You shared eating or drinking utensils They sneezed, coughed, or somehow got respiratory droplets on you Steps to take Stay home and monitor your health Stay home for 14 days after your last contact with a person who has COVID-19. Watch for fever (100.4?F), cough, shortness of breath, or other symptoms of COVID-19 If possible, stay away from others, especially people who are at higher risk for getting very sick from COVID-19 Prescriptions: No Action acyclovir [Zovirax] 800 MG tablet 800 mg PO BID PRN (Reason: hsv) Qty: 0 RF: 0 ibuprofen 200 MG tablet 200 mg PO Q4HP PRN (Reason: Pain (Scale Score 1-3)) Qty: 0 RF: 0 valacyclovir 500 mg Tablet 500 mg PO BID RF: 0 levofloxacin [Levaquin] 750 mg tablet 750 mg PO DAILY Qty: 14 RF: 0 ibuprofen 600 mg tablet 600 mg PO Q6-8H PRN (Reason: pain) Qty: 30 RF: 0 Referrals: [facility] [Outside]
== END 2020-03-04 02:56 | disposition home or self-care (01) ==
PROVIDERS: Emergency Provider Emergency Medicine
DX: R05 Cough (principal); J45.909 Unspecified asthma, uncomplicated; Z20.822 Contact with and (suspected) exposure to COVID-19; K58.9 Irritable bowel syndrome, unspecified
CPT/HCPCS: 87635; 99281; 99282; C9803